=== PATIENT | male | born 1955 | race Caucasian/White ===

== ENCOUNTER → 2024-01-16 | Outpatient (CLI) | payer MEDICARE ==
[2024-01-16 13:24] LABS: PH-URINE 5.5 (5.0 - 8.0); URINE APPEARANCE CLOUDY (CLEAR); URINE BILIRUBIN NEGATIVE (NEGATIVE); URINE BLOOD 2+ (NEGATIVE); URINE COLOR YELLOW (YELLOW); URINE GLUCOSE NEGATIVE (NEGATIVE); URINE KETONE NEGATIVE (NEGATIVE); URINE LEUKOCYTE ESTERASE 3+ (NEGATIVE); URINE NITRATE NEGATIVE (NEGATIVE); URINE PROTEIN(semi-quant) 2+ (NEGATIVE); URINE WBC >50 /hpf (0-3)
[2024-01-16 13:25] LABS: URINE MUCUS PRESENT (NOT PRESENT)
== END ==
LOC: LAB 12:57
PROVIDERS: Family Medicine
DX: A41.9 Sepsis, unspecified organism (principal); N40.1 Benign prostatic hyperplasia with lower urinary tract symptoms